=== PATIENT | male | born 1975 | race Caucasian/White ===

== ENCOUNTER 2021-04-07 09:59 | Emergency (ER) | payer OTHER, MEDICAID, SELFPAY ==
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
[2021-04-07 10:27] VITALS: BP 130/83; PULSE 72; RESP 16; TEMP 36.3; O2SAT 99; BMI 30.8
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
== END 2021-04-07 13:40 | disposition left against medical advice (07) ==
PROVIDERS: Emergency Provider Emergency Medicine
DX: S16.1XXA Strain of muscle, fascia and tendon at neck level, initial encounter (principal); S60.222A Contusion of left hand, initial encounter; M54.2 Cervicalgia; M79.602 Pain in left arm; V43.52XA Car driver injured in collision with other type car in traffic accident, initial encounter; Y93.9 Activity, unspecified; Y92.410 Unspecified street and highway as the place of occurrence of the external cause; Y99.9 Unspecified external cause status; Z79.899 Other long term (current) drug therapy
CPT/HCPCS: 73090; 73110; 73130; 99282; 99283